=== PATIENT | male | born 1945 | race Caucasian/White ===

== ENCOUNTER 2016-06-13 13:41 | Outpatient (CLI) | payer OTHER ==
[~2016-06-13] VITALS: Ht 177.8 cm; Wt 105.9 kg
[2016-06-13 14:02] VITALS: BP 139/75; PULSE 72; RESP 16; Ht 177.8 cm; Wt 105.9 kg
--- NOTE | 2016-06-13 17:10 | CONS ---
Date/Time of Note Date/Time of Note DATE: 06/13/16 TIME: 16:31 Assessment/Plan Assessment/Plan Additional Assessment/Plan [facility] Subsequent Consultation Note Date of Service: 06/13/2016 Place of Service: [facility] Today's Assessment & Plan: Overall stable, but with likely suture granuloma. Can benefit from operative exploration and debridement with likely packing afterwards with dressing changes. Explained to patient and his and answered all questions. They are in agreement. With above assessment, I've recommended the following for today: 1. Pre-op H&P 2. Local exploration of left abdominal previous site of ostomy with possible drainage and excision of suture granuloma Thank you again for your great care of this very pleasant gentleman and his wonderful family. If there are any questions, please feel free to call me at . TOTAL VISIT TIME: 30 minutes of which more than half was spent in [id number] discussion with the patient as well as coordination of care between multiple physicians and providers. Disclaimer: Inadvertent spelling and grammatical errors are likely due to EHR/ dictation software use and do not reflect on the quality of delivered patient care. Also, please note that the electronic time recorded on this node does not necessarily reflect the actual time of the visit. Updated Clinical Summary: The patient is a very pleasant 70-year-old gentleman, well known to me and my practice from his prior multiple encounters for his complex surgical history with perforated diverticulitis, requiring emergency colectomy, a Loan procedure with colostomy, and then later on, takedown of this colostomy, in addition to endovascular repair of an abdominal aneurysm, porcelain gallbladder , status post laparoscopic cholecystectomy and a left total knee replacement, who has has been followed by us for incisional ventral hernia. Repeat CT scan in 06/08/15 showed presence of multiple small abdominal wall hernias, largest of which is to the right of midline above the level of the umbilicus. Given the patient's symptoms, I recommended surgical repair. Status post laparoscopic exploration with lysis of adhesions and mesh hernia repair of abdominal wall incisional hernias 3, 6 x 4 cm (main one that was symptomatic to the right of midline right upper quadrant) 4 x 2 cm upper midline, and 6 x 4 cm under previous colostomy site on the left), using 25 x 20 cm mesh (Symbotex, Covidien ) 09/04/2015. Kept in-house an additional 2 days for postoperative paralytic ileus resolution and monitoring. D/c home 09/08/15. Issues with drainage from old ostomy site towards end of 2015 and into beginning of 2016. CT 01/14/16 angiogram for AAA repair showed thickened area of abdominal wall at the site of leakage, but no obvious hernia. Comorbidities: 1. History of above-mentioned diverticulitis, leading to emergency resection, followed by a primary anastomosis and diverting colostomy that then was taken down a few months later. 2. A history of abdominal aortic aneurysm repair through endovascular means. 3. Status post left knee surgery. 4. Status post colonoscopy approximately 4 years ago which was thought to be normal. 5. Status post lap scopic cholecystectomy 6. History of above-mentioned diverticulitis, leading to emergency resection, followed by a primary anastomosis and diverting colostomy that then was taken down a few months later. 7. A history of abdominal aortic aneurysm repair through endovascular means. 8. Status post left knee surgery. 9. Status post colonoscopy approximately 4 years ago which was thought to be normal. 10. Status post lap scopic cholecystectomy Disclaimer: Inadvertent spelling and grammatical errors are likely due to EHR/ dictation software use and do not reflect on the quality of delivered patient care. PLACE OF SERVICE: [facility] ([facility]) at [facility] DATE OF CONSULTATION: 06/13/16 REASON FOR CONSULTATION: Drainage from previous ostomy site REFERRING PHYSICIAN: Matt Duff MD Dear Dr. 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 Julio Cesar Benites. HISTORY OF PRESENT ILLNESS: The patient is a very pleasant, 70-year-old gentleman, with above mentioned comorbidities, presenting with drainage from pervious ostomy site. Intermittent pain with relief with drainage. No fevers or chills. No n/v/d. No other major symptoms. ALLERGIES: NO KNOWN DRUG ALLERGIES MEDICATIONS See EHR SOCIAL HISTORY: The patient is and lives with his . There is no history of tobacco, alcohol or intravenous drug use. FAMILY HISTORY: There are no significant medical, surgical or oncologic issues in the family as reported by the patient or reflected in the chart. Note, that the patient's son when he was young. REVIEW OF SYSTEMS: Other than above mentioned, there are no other major pertinent positives or negatives in a complete 14 point of systems. PHYSICAL EXAMINATION GENERAL: The patient appears to be a very-pleasant, gentleman of [place] descent, appearing stated age, BMI 33.5 (previously 38.2 2016) sitting in a chair comfortably. VITAL SIGNS: AVSS (please also see EHR) HEENT: Head is normocephalic and atraumatic. His extraocular muscles and hearing are grossly intact bilaterally and symmetrically. His sclerae are nonicteric. Oral cavity is clear, and his oral mucosa appears to be pink and moist. He has fair to poor dentition with missing teeth. NECK: Supple. There is no lymphadenopathy or JVD. There is no submental, submandibular or supraclavicular lymphadenopathy. CHEST: Rises symmetrically with each breath and he is breathing comfortably. There are no audible wheezes, rales or rhonchi. HEART: Pulse is regular and palpable on the right wrist. His carotid pulses are palpable in his neck bilaterally and symmetrically. His capillary refill is normal. ABDOMEN: Shows well-healed, midline scars, as well as the previous colostomy site take down. There is no evidence of peritoneal signs or guarding. No evidence of wound issues, including no discharge, edema, erythema, or evidence of hernia along the midline. Small skin defect at site of old ostomy with mild purulent staining. No expressible pus. No sig tenderness or erythema. SKIN: Otherwise, appears to be pink and feels warm to touch. EXTREMITIES: Lower extremities contain no pitting edema bilaterally and symmetrically. NEUROLOGIC: Awake, alert, and follows commands appropriately. LABORATORY DATA: See clinic chart. IMAGING: See electronic chart. Please note that I've personally reviewed all pertinent available images and I agree in general with their overall reported findings. Consultation Date/Type/Reason Admit Date/Time Initial Consult Date Exam/Review of Systems Vital Signs Vitals Vital Signs Date Time Temp Pulse Resp B/P Pulse Ox O2 Delivery O2 Flow Rate FiO2 06/13/16 14:02 97.8 72 16 139/75 95 Room Air BRIA WOLFE M.D. Jun 13, 2016 16:52
== END 2016-06-13 17:00 | disposition home or self-care (01) ==
LOC: HPC 13:41
PROVIDERS: ATTEND Transplant Surgery
DX: K57.80 Diverticulitis of intestine, part unspecified, with perforation and abscess without bleeding (principal)
CPT/HCPCS: G0463

== ENCOUNTER 2016-07-13 10:19 | Outpatient (CLI) | payer OTHER ==
[~2016-07-13] VITALS: Ht 167.6 cm; Wt 106.8 kg
[2016-07-13 10:35] VITALS: BP 137/78; PULSE 66; RESP 18; Ht 167.6 cm; Wt 106.8 kg
--- NOTE | 2016-07-13 12:03 | PN ---
Date/Time of Note Date/Time of Note DATE: 07/13/16 TIME: 11:52 Assessment/Plan Assessment/Plan Assessment/Plan [facility] Progress Note Date of Service: 07/13/16 Today's Impression & Plan: Overall doing well post op without major issues. No major wound problems. No indication for surgical intervention. Wound essentially completely healed post removal of the suture material from old colostomy site. With above assessment, I've recommended the following for today: 1. F/u with PCP 2. F/u with us prn Thank you again for your great care of this very pleasant patient and wonderful family. If there are any questions, please feel free to call me at [phone]. TOTAL VISIT TIME: 20 minutes of which more than half was spent in [id number] discussion with the patient, possibly including family, as well as coordination of care between multiple physicians and providers. Disclaimer: Inadvertent spelling or grammatical errors are likely due to EHR/ dictation software use and do not reflect on the overall quality of patient care. Updated Clinical Summary: The patient is a very pleasant 70-year-old gentleman, well known to me and my practice from his prior multiple encounters for his complex surgical history with perforated diverticulitis, requiring emergency colectomy, a Loan procedure with colostomy, and then later on, takedown of this colostomy, in addition to endovascular repair of an abdominal aneurysm, porcelain gallbladder , status post laparoscopic cholecystectomy and a left total knee replacement, who has has been followed by us for incisional ventral hernia. Repeat CT scan in 06/08/15 showed presence of multiple small abdominal wall hernias, largest of which is to the right of midline above the level of the umbilicus. Given the patient's symptoms, I recommended surgical repair. Status post laparoscopic exploration with lysis of adhesions and mesh hernia repair of abdominal wall incisional hernias 3, 6 x 4 cm (main one that was symptomatic to the right of midline right upper quadrant) 4 x 2 cm upper midline, and 6 x 4 cm under previous colostomy site on the left), using 25 x 20 cm mesh (Symbotex, Covidien ) 09/04/2015. Kept in-house an additional 2 days for postoperative paralytic ileus resolution and monitoring. D/c home 09/08/15. Issues with drainage from old ostomy site towards end of 2015 and into beginning of 2016. CT 01/14/16 angiogram for AAA repair showed thickened area of abdominal wall at the site of leakage, but no obvious hernia. Comorbidities: 1. History of above-mentioned diverticulitis, leading to emergency resection, followed by a primary anastomosis and diverting colostomy that then was taken down a few months later. 2. A history of abdominal aortic aneurysm repair through endovascular means. 3. Status post left knee surgery. 4. Status post colonoscopy approximately 4 years ago which was thought to be normal. 5. Status post lap scopic cholecystectomy 6. History of above-mentioned diverticulitis, leading to emergency resection, followed by a primary anastomosis and diverting colostomy that then was taken down a few months later. 7. A history of abdominal aortic aneurysm repair through endovascular means. 8. Status post left knee surgery. 9. Status post colonoscopy approximately 4 years ago which was thought to be normal. 10. Status post lap scopic cholecystectomy 11. S/p wound exploration and removal of suture material from old colostomy take -down site at [facility] on 06/23/16 Subjective: No major events or complaints; no abd pain and under control with medications; no n/v/d; no sob or cp; + flatus; + BM and normal; + activity Objective: Vitals: See below Exam: GENERAL: On exam, the patient was sitting in a chair and appeared to be comfortable and in no acute distress. ABDOMEN: Soft, nontender and nondistended. Incisions are clean, dry and intact without any evidence of erythema, edema, discharge, or hernia. There are no peritoneal signs or guarding. SKIN: Skin appears to be pink and feels warm to touch. NEUROLOGIC: Patient is awake, alert, and follows commands appropriately. Exam/Review of Systems Vital Signs Vitals Vital Signs Date Time Temp Pulse Resp B/P Pulse Ox O2 Delivery O2 Flow Rate FiO2 07/13/16 10:35 97.6 66 18 137/78 96 Room Air BRIA WOLFE M.D. July 13, 2016 12:03
== END 2016-07-13 16:44 | disposition home or self-care (01) ==
LOC: HPC 10:19
PROVIDERS: ATTEND Transplant Surgery
DX: K57.30 Diverticulosis of large intestine without perforation or abscess without bleeding (principal); I71.4 Abdominal aortic aneurysm, without rupture
CPT/HCPCS: G0463

== ENCOUNTER 2017-03-02 17:42 | Inpatient (IN) | payer OTHER ==
[~2017-03-02] VITALS: Ht 177.8 cm; Wt 106.1 kg
[2017-03-02] MEDS ORDERED: ACETAMINOPHEN 325 MG TAB PO STA (18:22)
[2017-03-02] MEDS ORDERED: SODIUM CHLORIDE 0.9% 1L BAG IV* STA (18:22)
[2017-03-02] MEDS ORDERED: CEFTRIAXONE 1 GM/50 ML (PMX) 50 ML IVPB STA (18:22)
[2017-03-02 18:30] VITALS: TEMP 99.9
--- NOTE | 2017-03-02 19:07 | RADRPT ---
PROCEDURE: XR Chest 1 View. CLINICAL INDICATION: Shortness of breath. Possible sepsis. TECHNIQUE: Single view of the chest was obtained. COMPARISON: CR CHEST 06/08/2013 FINDINGS: The heart size is within normal limits. Calcified atherosclerosis is noted in the aorta. Mild centr al pulmonary vascular congestion and interstitial prominence is seen in both lungs. Scattered atelec tasis is noted in the bilateral lower lobes. No consolidations are identified. No pneumothorax is s een. Osseous structures are intact. IMPRESSION: Calcified atherosclerosis in the aorta. Mild central pulmonary vascular congestion and interstitial prominence in both lungs. Scattered atelectasis in the bilateral lower lungs. RPTAT: AA .Montana Henning MD, Date Time Electronically viewed and signed by .Montana Henning MD, on 03/02/2017 19:07 .P/
[2017-03-02] MEDS ORDERED: CLOT15CR6 TOP (19:15)
[2017-03-02 19:43] LABS: ADD UMIC YES; UR ASCORBIC ACID NEGATIVE (NEGATIVE); UR BACTERIA MODERATE /HPF (NONE SEEN); UR BILIRUBIN (Dip) NEGATIVE (NEGATIVE); UR BLOOD (Dip) 3+ mg/dL (NEGATIVE); UR CLARITY SLIGHTLY CLOUDY (CLEAR); UR COLOR AMBER (YELLOW); UR GLUCOSE (Dip) NEGATIVE (NEGATIVE); UR KETONES (Dip) TRACE mg/dL (NEGATIVE); UR LEUKOCYTE ESTERASE (Dip) 1+ Leu/ul (NEGATIVE); UR MUCUS MANY /HPF (NONE SEEN); UR NITRITE (Dip) NEGATIVE (NEGATIVE); UR NONSQUAMOUS EPITHELIAL CELL 1 /HPF (NONE SEEN); UR RBC 35 /HPF (0-5); UR SPECIFIC GRAVITY (Dip) 1.021 (1.003-1.030); UR TOTAL PROTEIN (Dip) 2+ mg/dl (NEGATIVE); UR UROBILINOGEN (Dip) 2+ mg/dL (NEGATIVE)
[2017-03-02 20:08] LABS: ABNORMAL IP MESSAGE 1; BASOPHILS % 0.2 % (0.0-2.0); HEMATOCRIT 45.6 % (42.0-52.0); HEMOGLOBIN 15.6 g/dl (14.0-18.0); LYMPHOCYTES # 0.6 10^3/ul (0.8-2.9); LYMPHOCYTES % 4.2 % (15.0-51.0); MEAN CORPUSCULAR HEMOGLOBIN 29.5 pg (29.0-33.0); MEAN CORPUSCULAR HGB CONC 34.2 g/dl (32.0-37.0); MEAN CORPUSCULAR VOLUME 86.2 fl (82.0-101.0); MEAN PLATELET VOLUME 10.4 fl (7.4-10.4); MONOCYTE # 0.8 10^3/ul (0.3-0.9); MONOCYTES % 5.6 % (0.0-11.0); NEUTROPHIL # 12.1 10^3/ul (1.6-7.5); NEUTROPHILS % 89.3 % (39.0-77.0); PLATELET COUNT 132 10^3/UL (140-415); POSITIVE DIFF @See below; RED BLOOD COUNT 5.29 10^6/ul (4.70-6.10); RED CELL DISTRIBUTION WIDTH 13.6 % (11.5-14.5); WHITE BLOOD COUNT 13.5 10^3/ul (4.8-10.8)
--- NOTE | 2017-03-02 20:20 | ERD ---
ER Documentation Chief Complaint Chief Complaint URINARY RETENTION/CONSTIPATION X3DAYS HPI This is a 71-year-old male that presents to the emergency department complaining of tactile fever with shaking and chills increased frequency urgency and dysuria for the past 3 days. Indicates he has been able to produce a small amount of urine due to the severity of pain with urination. He also indicates he had decreased bowel movements over the past 3 days with intermittent abdominal cramping. He has had significant past surgical history of his abdomen over the past several years. She returned from [facility] roughly 2 weeks ago but denies any shortness of breath at rest or exertion. He has had a nonproductive cough with generalized myalgias. He did not take any antipyretics prior to arrival. He denies any hemoptysis hematemesis or melanotic stools and denies any gross hematuria. Denies a headache or neck pain ROS All systems reviewed and are negative except as per history of present illness. Medications Home Meds Reported Medications Clotrimazole-Betamethasone Diprop (Clotrimazole-Betamethasone Diprop) 15 Gm Cream.gm., 1 APPLIC TOP BID, TUB 03/02/17 Allergies Allergies: Coded Allergies: No Known Allergy (Unverified , 03/02/17) PMhx/Soc Medical and Surgical Hx: pt denies Medical Hx History of Surgery: Yes (colon resection, hernia, colostomy, aortic stents, cholecystectomy) Anesthesia Reaction: No Hx Neurological Disorder: No Hx Respiratory Disorders: No Hx Cardiac Disorders: Yes (aortic sents) Hx Psychiatric Problems: No Hx Miscellaneous Medical Probl: No Hx Alcohol Use: No Hx Substance Use: No Hx Tobacco Use: No Smoking Status: Former smoker Physical Exam Vitals Vital Signs Date Time Temp Pulse Resp B/P Pulse Ox O2 Delivery O2 Flow Rate FiO2 03/02/17 18:30 99.9 79 18 136/74 93 Room Air 03/02/17 17:45 101.9 100 20 148/71 97 Physical Exam Constitutional:Well-developed. Well-nourished. HEENT:Normocephalic. Atraumatic.Pupils were equal round reactive to light. Very dry mucous membranes.No tonsillar exudates. Neck: No nuchal rigidity. No lymphadenopathy. No posterior cervical spine tenderness or step-offs. Respiratory: Not using accessory muscles of respiration.Lungs were clear to auscultation bilaterally. No rhonchi. No rales. No wheezing. Cardiovascular: Regular rate regular rhythm.No murmurs. No rubs were appreciated.S1, S2 normal. Distal pulses are palpable 2+ bilaterally. GI: Abdomen was soft. Tenderness in the left lower quadrant.. Non Distended. No pulsatile abdominal masses or bruits. No rebound. No guarding. Bowel sounds were present and normal. Previous surgical scars below the umbilicus midline vertical with no palpable hernias or masses. Muscle skeletal: Full range of motion of both the upper and lower extremities bilaterally.Normal muscle tone.No assymetrical calf tenderness or swelling. Skin: Warm to the touch with no petechia, no purpura. No lesions on the palms or the soles of the feet. No maculopapular rash. NEURO: Patient was alert, awake, orientated x3.No facial droop. Gait observed and normal with no ataxia.Speech had regular rate and rhythm. No focal neurological deficits. Result Diagram: 03/02/17189903/02/171899 Results 24 hrs Laboratory Tests Test 03/02/17 19:00 White Blood Count 13.510^3/ul Red Blood Count 5.2910^6/ul Hemoglobin 15.6g/dl Hematocrit 45.6% Mean Corpuscular Volume 86.2fl Mean Corpuscular Hemoglobin 29.5pg Mean Corpuscular Hemoglobin Concent 34.2g/dl Red Cell Distribution Width 13.6% Platelet Count 87025^3/UL Mean Platelet Volume 10.4fl Neutrophils % 89.3% Lymphocytes % 4.2% Monocytes % 5.6% Eosinophils % 0.0% Basophils % 0.2% Nucleated Red Blood Cells % 0.0/100WBC Neutrophils # 12.110^3/ul Lymphocytes # 0.610^3/ul Monocytes # 0.810^3/ul Eosinophils # 0.010^3/ul Basophils # 0.010^3/ul Nucleated Red Blood Cells # 0.010^3/ul Prothrombin Time 14.1Sec Prothrombin Time Ratio 1.1 INR International Normalized Ratio 1.08 Activated Partial Thromboplast Time 40.2Sec Urine Color ELBA Urine Clarity SLIGHTLY CLOUDY Urine pH 6.0 Urine Specific Trent 1.021 Urine Ketones TRACEmg/dL Urine Nitrite NEGATIVEmg/dL Urine Bilirubin NEGATIVEmg/dL Urine Urobilinogen 2+mg/dL Urine Leukocyte Esterase 1+Dylan/ul Urine Microscopic RBC 35/HPF Urine Microscopic WBC 68/HPF Urine Bacteria MODERATE/HPF Urine Mucus MANY/HPF Urine Hemoglobin 3+mg/dL Urine Glucose NEGATIVEmg/dL Urine Total Protein 2+mg/dl Sodium Level 136mmol/L Potassium Level 4.2mmol/L Chloride Level 98mmol/L Carbon Dioxide Level 24mmol/L Anion Gap 18 Blood Urea Nitrogen 13mg/dl Creatinine 1.08mg/dl Glucose Level 155mg/dl Lactic Acid Level 2.3mmol/L Calcium Level 9.3mg/dl Total Bilirubin 0.8mg/dl Direct Bilirubin 0.00mg/dl Indirect Bilirubin 0.8mg/dl Aspartate Amino Transf (AST/SGOT) 27IU/L Alanine Aminotransferase (ALT/SGPT) 48IU/L Alkaline Phosphatase 81IU/L Troponin I < 0.012ng/ml Total Protein 7.4g/dl Albumin 3.7g/dl Globulin 3.70g/dl Albumin/Globulin Ratio 1.00 Amylase Level < 30U/L Lipase 41U/L Current Medications Medications (Trade) Dose Ordered Sig/Mercedes Route PRN Reason Start Time Stop Time Status Last Admin Dose Admin Sodium Chloride (NS) 3,260 ml BOLUS OVER 2 HOURS STAT IV* 03/02/17 18:22 03/02/17 18:24 DC 03/02/17 20:50 Acetaminophen 650 mg 650 mg ONCE STAT PO 03/02/17 18:22 03/02/17 18:24 DC 03/02/17 20:49 Ceftriaxone Sodium (Rocephin) 50 ml @ 100 mls/hr ONCE STAT IVPB 03/02/17 18:22 03/02/17 18:57 DC 03/02/17 20:50 IV Flush 10 ml 10 ml STK-MED ONCE .ROUTE 03/02/17 20:51 03/02/17 20:52 DC Sodium Chloride (NS) 100 ml @ ud STK-MED ONCE .ROUTE 03/02/17 20:51 03/02/17 20:52 DC Iohexol (Omnipaque 300mg/ ml) 150 ml STK-MED ONCE .ROUTE 03/02/17 20:51 03/02/17 20:52 DC IV Flush 10 ml 10 ml STK-MED ONCE .ROUTE 03/02/17 22:11 03/02/17 22:12 DC Sodium Chloride (NS) 100 ml @ ud STK-MED ONCE .ROUTE 03/02/17 22:11 03/02/17 22:12 DC Iohexol (Omnipaque 300mg/ ml) 150 ml STK-MED ONCE .ROUTE 03/02/17 22:11 03/02/17 22:12 DC Procedures/MDM Presented to the emergency department febrile with sirs criteria and concerns for sepsis. Patient had a significant urinary tract infection with pyuria positive leukocytes and nitrates. Patient's infectious symptoms have not stabilized and the patient is at risk of rapid decompensation. The patient will be admitted for careful hydration, antibiotic therapy, and infectious source control. Severe Sepsis Assessment: Infectious Source: pyleonephritis End organ damage indicated by: Lactate > 2.0 mmol/L Severe Sepsis Managment: Blood Cultures X 2 before broad spectrum antibiotics initiated within 3 hours of recognition. 30 ml/kg NS bolus Completed Initial Lactate: 2.3 Repeat Lactate pending I considered further perfusion assessment with CVP measurement, SCVO2, bedside ultrasound volume assessment, passive leg raise, trial of further fluid bolus. And preceded with IV fluid hydration as the patient did have mild pulmonary vascular congestion on the chest radiograph but also had signs of clinical dehydration. 12 Lead EKG tracing ordered and reviewed by myself showed: Normal sinus rhythm of 78 bpm and no arrhythmia. GA interval normal. QRS duration normal. No ST segment elevation. Q waves present in the inferior leads III and aVF No ST segment depression. No changes consistent with acute ischemia. I obtained a CT scan of the abdomen due to the patient's mild femoral pain and this was reviewed by the radiologist myself and indicated the following: Abdominal aortic aneurysm measuring up to 4.4 cm with endovascular and aortobi- iliac stents, unchanged compared with 01/14/2016. Fatty infiltration of the liver. Status post cholecystectomy. Bilateral small renal cysts. Scattered sigmoid diverticuli without evidence of diverticulitis. Vascular calcifications reflective of atherosclerosis. Mild bibasilar atelectasis. Mild bladder wall thickening could suggest cystitis. Clinical correlation is needed. Mildly enlarged prostate. Patient will be admitted in serious condition to the telemetry service. Critical Care: Time: 55 minutes Treatments/Evaluations: Close monitoring and treatment of unstable vital signs, cardiorespiratory, and neurologic status, while maintaining tight balance of fluid, respiratory, and cardiac interventions. Time does not include performing any of the above billable procedures. Departure Diagnosis: Primary Impression: Pyelonephritis Additional Impression: Sepsis Sepsis type: sepsis due to unspecified organism Qualified Code: A41.9 - Sepsis, due to unspecified organism Condition: Serious KAREN MULLER Mar 02, 2017 20:20
[2017-03-02 20:22] LABS: INR 1.08; PROTIME 14.1 Sec (11.9-14.9); PT RATIO 1.1
[2017-03-02 20:23] LABS: PARTIAL THROMBOPLASTIN TIME 40.2 Sec (25.0-35.0)
[2017-03-02 20:27] LABS: ALANINE AMINOTRANSFERASE 48 IU/L (13-69); ALBUMIN 3.7 g/dl (3.3-4.9); ALKALINE PHOSPHATASE 81 IU/L (42-121); ANION GAP 18 (8-16); ASPARTATE AMINO TRANSFERASE 27 IU/L (15-46); BILIRUBIN,INDIRECT 0.8 mg/dl (0-1.1); BILIRUBIN,TOTAL 0.8 mg/dl (0.2-1.3); BLOOD UREA NITROGEN 13 mg/dl (7-20); CALCIUM 9.3 mg/dl (8.4-10.2); CARBON DIOXIDE 24 mmol/L (21-31); CHLORIDE 98 mmol/L (97-110); CREATININE 1.08 mg/dl (0.61-1.24); GLUCOSE 155 mg/dl (70-220); POTASSIUM 4.2 mmol/L (3.5-5.1); SODIUM 136 mmol/L (135-144); TOTAL PROTEIN 7.4 g/dl (6.1-8.1)
[2017-03-02 20:29] LABS: AMYLASE < 30 U/L (11-123)
[2017-03-02 20:37] LABS: TROPONIN-I < 0.012 ng/ml (0.00-0.12)
[2017-03-02] MEDS ORDERED: IOHEXOL 300MG/ML 150 ML BTL ONE ×2 (20:51→22:11)
[2017-03-02] MEDS ORDERED: SOD CHLORIDE 0.9% 100 ML ONE ×2 (20:51→22:11)
--- NOTE | 2017-03-02 23:09 | RADRPT ---
PROCEDURE: CT Abdomen and pelvis with contrast. CLINICAL INDICATION: Abdominal pain. TECHNIQUE: CT scan of the abdomen and pelvis with contrast was performed on a multi-detector high -resolution CT scanner. The patient was scanned following the uncomplicated administration of 90 cc of Omnipaque 300 intravenous contrast. Coronal and sagittal reformatted images were obtained from the axial source images. Images were reviewed on a high-resolution PACS workstation. DICOM images ar e available. One or more of the following dose reduction techniques were used: - Automated exposure control. - Adjustment of the mA and/or kV according to patient size. - Use of iterative reconstruction technique. Exam CTD/vol = 19.80 mGy. Total exam DLP = 1393.39 mGy-cm. COMPARISON: 01/14/2016. FINDINGS: Evaluation of the lung bases demonstrates mild bibasilar atelectasis. Abdomen: The liver is normal in size diffusely low in attenuation consistent with fatty infiltratio n. There is no focal mass or dilatation of the biliary tree. The patient is status post cholecyste ctomy. The spleen, pancreas and bilateral adrenal glands are within normal limits. Bilateral kidne ys are normal in size with symmetric enhancement. There are small renal cysts bilaterally. There is no hydronephrosis or hydroureter. There is no retroperitoneal adenopathy. The abdominal aorta mil dly aneurysmal measuring 4.4 x 4.1 cm in maximal axial dimensions. There are endovascular and aortob i-iliac stents present. There are scattered atherosclerotic calcifications. There is no bowel obstruction or free air. The appendix is not visualized. There are scattered sigm oid diverticuli without evidence of diverticulitis. There is no ascites. Pelvis: The bladder demonstrates mild wall thickening. The prostate is mildly enlarged. There is no significant pelvic adenopathy or free fluid. Evaluation of the osseous structures demonstrates no suspicious lytic or blastic lesion. IMPRESSION: Abdominal aortic aneurysm measuring up to 4.4 cm with endovascular and aortobi-iliac stents, unchang ed compared with 01/14/2016. Fatty infiltration of the liver. Status post cholecystectomy. Bilateral small renal cysts. Scattered sigmoid diverticuli without evidence of diverticulitis. Vascular calcifications reflective of atherosclerosis. Mild bibasilar atelectasis. Mild bladder wall thickening could suggest cystitis. Clinical correlation is needed. Mildly enlarged prostate.. .Dominic Lao MD, MD Date Time Electronically viewed and signed by .Dominic Lao MD, MD on 03/02/2017 23:09 .T/
[2017-03-03] VITALS (9 sets, daily range): BP systolic 123–144; BP diastolic 69–78; PULSE 62–72; RESP 18–20; Ht 177.8 cm; Wt 106.1 kg
[2017-03-03] MEDS ORDERED: ONDANSETRON 4 MG INJ IV PRN
[2017-03-03] MEDS ORDERED: NA PHOSPHATE/BIPHOS 133 ML ENEMA PR PRN
[2017-03-03] MEDS ORDERED: BISACODYL (EC) 5 MG TAB PO PRN
[2017-03-03] MEDS ORDERED: SOD CHLORIDE 0.9% IV ONE
[2017-03-03] MEDS ORDERED: ZOLPIDEM 5 MG TAB PO PRN
[2017-03-03] MEDS ORDERED: MAGNESIUM HYDROXIDE 30ML CUP PO PRN
[2017-03-03] MEDS ORDERED: NACL 0.9% 3 ML SYG IV SCH
[2017-03-03] MEDS ORDERED: HYDROCODONE/APAP (5/325) TAB PO PRN
[2017-03-03] MEDS ORDERED: DOCUSATE SODIUM 100 MG CAP PO PRN
[2017-03-03] MEDS ORDERED: ACETAMINOPHEN 325 MG TAB PO PRN
[2017-03-03] MEDS ORDERED: morphine 2 MG INJ IV PRN
[2017-03-03] MEDS ORDERED: LORAZEPAM 2 MG INJ IV PRN
[2017-03-03] MEDS ORDERED: BISACODYL 10 MG SUPP PR PRN
--- NOTE | 2017-03-03 00:01 | HP ---
Date/Time of Note Date/Time of Note DATE: 03/02/17 TIME: 23:49 Assessment/Plan VTE Prophylaxis VTE Prophylaxis Intervention: ambulation, anti-embolic stocking Lines/Catheters IV Catheter Type (from Nrs): Peripheral IV Central line still needed: No Urinary Cath still in place: No Reason Cath still needed: urinary retention Assessment/Plan Problems: (1) Sepsis Status: Acute Comment: Sepsis work up per protocol Fluid bolus 31cc/kg IV now and then IV fluid maintained to hydrate the patient Meropenem given after blood culture /urine culture done Qualifiers: Sepsis type: Escherichia coli Qualified Code: A41.51 - Sepsis due to Escherichia coli (2) Sepsis due to urinary tract infection Status: Acute Comment: see management as mentioned as above. Urine culture result pending ;we will narrow antibiotics spectrum based on urine culture and sensitivity (3) Pyelonephritis Status: Acute Comment: It is related to acute urinary retention and acute bladder outlet obstruction see management as mentioned as above (4) Dehydration Status: Acute Comment: encourage oral fluid (5) BPH (benign prostatic hyperplasia) Status: Chronic Comment: Proscar and Flomax given Qualifiers: Lower urinary tract symptom presence: symptoms present Lower urinary tract symptom detail: urinary frequency Qualified Code: N40.1 - Benign prostatic hyperplasia with urinary frequency (6) Obesity (BMI 30.0-34.9) Status: Chronic Comment: ambulate as much as possible (7) Abdominal aortic aneurysm (AAA) Status: Chronic Comment: S/P stenting due to atherosclerosis aspirin and Lipitor given TSH and lipid panel checked Qualifiers: Presence of rupture: without rupture Qualified Code: I71.4 - Abdominal aortic aneurysm (AAA) without rupture HPI/ROS Admit Date/Time Admit Date/Time 03/02/2017 Hx of Present Illness This is a 71-year-old male with significant medical illness of BPH , stable AAA S/P stenting due to atherosclerosis ,morbid obesity who was admitted here due to sepsis with acute pyelonephritis that presents to the emergency department complaining of tactile fever with shaking and chills increased frequency urgency and dysuria for the past 3 days. Indicates he has been able to produce a small amount of urine due to the severity of pain with urination. He also indicates he had decreased bowel movements over the past 3 days with intermittent abdominal cramping. He has had significant past surgical history of his abdomen over the past several years. She returned from [facility] roughly 2 weeks ago but denies any shortness of breath at rest or exertion. He has had a nonproductive cough with generalized myalgias. He did not take any antipyretics prior to arrival. He denies any hemoptysis hematemesis or melanotic stools and denies any gross hematuria. Denies a headache or neck pain ROS Constitutional: chills, fatigue, febrile, nausea, poor po, No diaphoresis, No disoriented, No improved, No no complaints, No other, No weight change Eyes: No discharge, No no complaints, No other, No pain, No redness, No visual change ENT: No bleeding, No congestion, No discharge, No dysphagia, No no complaints, No other, No pain, No sore throat Respiratory: No cough, No no complaints, No other, No pain, No pleuritic pain, No shortness of breath, No sputum, No wheezing Cardiovascular: lightheadedness, No chest pain, No edema, No no complaints, No orthopenea, No other, No palpitations, No paroxysmal nocturnal dyspnea Gastrointestinal: constipation, decreased appetite, flatus, vomiting, No blood, No diarrhea, No nausea, No no complaints, No other, No pain, No passing stool Genitourinary: discharge, dysuria, hematuria, No bleeding, No flank pain, No no complaints, No other Musculoskeletal: No back pain, No bone/joint pain, No neck pain, No no complaints, No other, No restricted range of motion, No swelling Skin: No bruising, No erythema, No laceration, No no complaints, No other, No pruritis, No rash, No skin lesions Neurologic: No confusion, No dizziness, No focal-weakness, No headache, No no complaints, No other, No seizure, No syncope Endocrine: No dry skin, No no complaints, No other, No polydypsia, No polyuria , No temp intolerance, No weight change Lymphatic: No adenopathy, No lymphadema, No no complaints, No other, No tender nodes Psychological: anxiety, No confusion, No depression, No nl mood/affect, No no complaints, No other, No suicidal Immunologic: No immunodeficiency, No no complaints, No other, No pruritis, No rhinitis, No urticaria PMH/Family/Social Past Medical History Medical History: hypertension, urinary tract infection, other (fibromyalgia) Past Surgical History Past Surgical Hx: cholecystectomy Family History Significant Family History: no pertinent family hx Social History Alcohol Use: none Smoking Status: Former smoker Drug Use: none Exam/Review of Systems Vital Signs Vitals Vital Signs Date Time Temp Pulse Resp B/P Pulse Ox O2 Delivery O2 Flow Rate FiO2 03/02/17 18:30 99.9 79 18 136/74 93 Room Air Exam Constitutional: alert, oriented, well developed Psych: anxiety Head: atraumatic, normocephalic Eyes: EOMI, PERRL, nl conjunctiva, nl lids, nl sclera ENMT: nl external ears & nose, nl lips & teeth, nl nasal mucosa & septum, other (dry mouth and oral musoca) Neck: non-tender, supple Respiratory: clear to auscultation, normal air movement, No congested cough, No crackles/rales, No diminished breath sounds, No intercostal retraction, No labored breathing, No other, No respirations, No tactile fremitus, No wheezing Cardiovascular: nl pulses, regular rate and rhythm Gastrointestinal: nl liver, spleen, non-tender, soft, No ascites, No bowel sounds, No distended, No firm, No hepatomegaly, No mass , No other, No rebound or guarding, No splenomegaly, No surgical scars, No tender Genitourinary - Male: nl penis, nl scrotum, No CVA tenderness, No discharge, No other Genitourinary - Female: No CMT, No CVA tenderness, No nl adnexae, No nl external genitalia, No other, No uterus Musculoskeletal: nl extremities to inspection, nl gait and stance, No joint tenderness, No muscle tone, No muscle weakness, No other, No range of motion, No spine non-tender, No swelling Extremities: normal pulses, No calf tenderness, No clubbing, No cyanosis, No edema, No other, No palpable cord, No pitting pedal edema, No tenderness Neurological: CRYSTALLOGRAPHER II-XII intact, lethargic, nl mental status, nl speech, nl strength, No DTR's symmetric, No confused, No focal weakness, No numbness, No other, No reflexes, No unresponsive Skin: nl turgor Lymph: nl lymph nodes, No enlarged, No nontender, No other Labs Result Diagram: 03/02/17189903/02/171899 Medications Medications Current Medications Meropenem/Sodium Chloride (Merrem 1 Gm/50 ml (Pmx)) 50 ml @ 100 mls/hr Q8 IVPB ; Start 03/03/17 at 00:00 Famotidine 20 mg 20 mg Q12 PO ; Start 03/03/17 at 09:00; Status UNV Sodium Chloride (NS) 1,000 ml @ 100 mls/hr Q10H IV ; Start 03/03/17 at 02:00 Lorazepam (Ativan) 0.5 mg Q6H PRN IV ANXIETY; Start 03/03/17 at 00:00 Ondansetron HCl (Zofran Inj) 4 mg Q6H PRN IV NAUSEA AND/OR VOMITING; Start at 00:00 Acetaminophen (Tylenol Tab) 650 mg Q6H PRN PO PAIN LEVEL 1-3 OR FEVER; Start 03/03/17 at 00:00; Status UNV Acetaminophen/ Hydrocodone Bitart ([place] (5/325)) 1 tab Q6H PRN PO PAIN LEVEL 4 -6; Start 03/03/17 at 00:00 Morphine Sulfate (morphine) 1 mg Q4H PRN IV PAIN LEVEL 7-10; Start 03/03/17 at 00:00 Zolpidem Tartrate (Ambien) 5 mg QHS PRN PO INSOMNIA; Start 03/03/17 at 00:00; Status UNV Docusate Sodium (Colace) 100 mg Q12H PRN PO CONSTIPATION; Start 03/03/17 at 00 :00; Status UNV Magnesium Hydroxide (Milk Of Mag) 30 ml DAILY PRN PO CONSTIPATION; Start 03/03 at 00:00; Status UNV Bisacodyl (Dulcolax) 5 mg DAILY PRN PO CONSTIPATION; Start 03/03/17 at 00:00; Status UNV Bisacodyl (Dulcolax Supp) 10 mg DAILY PRN NM CONSTIPATION; Start 03/03/17 at 00:00; Status UNV Sodium Biphosphate/ Sodium Phosphate (Fleet Enema) 133 ml DAILY PRN NM CONSTIPATION; Start 03/03/17 at 00:00 Enoxaparin Sodium (Lovenox) 40 mg DAILY SC ; Start 03/03/17 at 09:00 Finasteride (Proscar) 5 mg DAILY NGT ; Start 03/03/17 at 09:00; Status UNV Tamsulosin HCl (Flomax) 0.4 mg HS PO ; Start 03/03/17 at 21:00; Status UNV Procedures Procedures CT abdomen showed Abdominal aortic aneurysm measuring up to 4.4 cm with endovascular and aortobi-iliac stents, unchanged compared with 01/14/2016. Fatty infiltration of the liver. Status post cholecystectomy. Bilateral small renal cysts. Scattered sigmoid diverticula without evidence of diverticulitis. Vascular calcifications reflective of atherosclerosis. Mild bibasilar atelectasis. Mild bladder wall thickening could suggest cystitis. Clinical correlation is needed. Mildly enlarged prostate.. CXR showed acute pulmonary infiltrate CRISTIAN AYALA MD Mar 03, 2017 00:01
[2017-03-03] MEDS: MEROPENEM 1 GM/50ML(PMX) 50 ML IVPB SCH ×4 (01:57→21:38)
[2017-03-03 02:06] LABS: CHOL/HDL RATIO 4.8 RATIO
[2017-03-03] MEDS: SOD CHLORIDE 0.9% 1,000 ML IV SCH ×3 (03:15→13:26)
[2017-03-03] MEDS ORDERED: ENOXAPARIN 40 MG/0.4 ML SYG SC SCH (09:00)
[2017-03-03] MEDS: FINASTERIDE 5 MG TAB PO SCH (09:07)
[2017-03-03] MEDS: FAMOTIDINE 20 MG TAB PO SCH ×2 (09:08→21:36)
[2017-03-03] MEDS: ASPIRIN (EC) 81 MG TAB PO SCH (09:08)
[2017-03-03] MEDS: BETAMETHASONE/CLOTRIMAZOLE 15 GM CR TOP SCH ×2 (09:10→21:36)
[2017-03-03 09:37] LABS: HEMATOCRIT 41.8 % (42.0-52.0); MEAN CORPUSCULAR HEMOGLOBIN 29.5 pg (29.0-33.0); MEAN CORPUSCULAR HGB CONC 33.5 g/dl (32.0-37.0); MEAN PLATELET VOLUME 10.7 fl (7.4-10.4); PLATELET COUNT 109 10^3/UL (140-415); POSITIVE DIFF @See below; RED BLOOD COUNT 4.75 10^6/ul (4.70-6.10); RED CELL DISTRIBUTION WIDTH 14.1 % (11.5-14.5); WHITE BLOOD COUNT 9.8 10^3/ul (4.8-10.8)
[2017-03-03 11:11] LABS: ALBUMIN 3.1 g/dl (3.3-4.9); ALBUMIN/GLOBULIN RATIO 0.91; BILIRUBIN,INDIRECT 0.4 mg/dl (0-1.1); BILIRUBIN,TOTAL 0.4 mg/dl (0.2-1.3); CALCIUM 8.3 mg/dl (8.4-10.2); CREATININE 0.9 mg/dl (0.61-1.24); POTASSIUM 3.8 mmol/L (3.5-5.1); TOTAL PROTEIN 6.5 g/dl (6.1-8.1)
--- NOTE | 2017-03-03 14:22 | PN ---
Date/Time of Note Date/Time of Note DATE: 03/03/17 TIME: 14:06 Assessment/Plan VTE Prophylaxis VTE Prophylaxis Intervention: SCD's Lines/Catheters IV [facility] Type ([facility] Peripheral IV Urinary Cath still in place: Yes Reason Cath still needed: urinary retention Assessment/Plan Assessment/Plan 71-year-old male with: 1. Cystitis, UTI status post sepsis, urine culture with gram-negative rods, afebrile this AM, WBC down to normal this morning. Agree with Meropenem while awaiting final urine culture results. Patient did have urinary retention overnight requiring Cornejo catheter placement. Patient currently on Proscar and Flomax, will DC Cornejo catheter early tomorrow morning to see if he is able to urinate on his own. 2. 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 It is unclear if he developed some scarring and Continue current antibiotics along with Flomax and Proscar. 3. Abdominal aortic aneurysm, stable, status post stenting. Continue current medical management and outpatient surveillance 4. Status post multiple colon surgeries and now with a mesh present. Stable so far, followed by Dr. Yoan Aguirre who has done all his previous surgical interventions. Prophylaxis: SCDs for DVT prophylaxis, Pepcid for GI prophylaxis Disposition: Monitor on telemetry for now, continue current antibiotics, follow up urine cultures, D/C Cornejo catheter in a.m. as trial. Subjective 24 Hr Interval Summary Free Text/Dictation Patient doing better today, he is afebrile. He denies any abdominal pain or suprapubic tenderness on palpation. Cornejo catheter had to be placed around 3 AM last night due to urinary retention. Urine culture pending. On appropriate antibiotics. Exam/Review of Systems Vital Signs Vitals Vital Signs Date Time Temp Pulse Resp B/P Pulse Ox O2 Delivery O2 Flow Rate FiO2 03/03/17 12:11 62 03/03/17 11:30 98.6 20 132/71 96 03/03/17 01:50 Room Air Intake and Output 03/02/17 03/02/17 03/03/17 14:59 22:59 06:59 Intake Total 3310 ml 300 ml Output Total 425 ml Balance 3310 ml -125 ml Exam Constitutional: alert, oriented, well developed Respiratory: clear to auscultation, normal air movement Cardiovascular: nl pulses, regular rate and rhythm Gastrointestinal: non-tender, soft Genitourinary - Male: other (Cornejo catheter in place) Musculoskeletal: nl extremities to inspection, nl gait and stance Extremities: normal pulses, other (No edema, clubbing or cyanosis) Neurological: EMBROIDERY SPECIALIST II-XII intact, nl mental status, nl speech, nl strength Results Result Diagram: 03/03/17 0757 03/03/17 0757 Results 24 hrs Laboratory Tests Test 03/02/17 19:00 03/03/17 00:20 03/03/17 07:57 White Blood Count 13.5 H 9.8 # Red Blood Count 5.29 4.75 Hemoglobin 15.6 14.0 Hematocrit 45.6 41.8 L Mean Corpuscular Volume 86.2 88.0 Mean Corpuscular Hemoglobin 29.5 29.5 Mean Corpuscular Hemoglobin Concent 34.2 33.5 Red Cell Distribution Width 13.6 14.1 Platelet Count 132 L 109 L Mean Platelet Volume 10.4 10.7 H Neutrophils % 89.3 H Lymphocytes % 4.2 L Monocytes % 5.6 Eosinophils % 0.0 Basophils % 0.2 Nucleated Red Blood Cells % 0.0 0.0 Neutrophils # 12.1 H Lymphocytes # 0.6 L Monocytes # 0.8 Eosinophils # 0.0 Basophils # 0.0 Nucleated Red Blood Cells # 0.0 Prothrombin Time 14.1 Prothrombin Time Ratio 1.1 INR International Normalized Ratio 1.08 Activated Partial Thromboplast Time 40.2 H Urine Color ELBA Urine Clarity SLIGHTLY CLOUDY A Urine pH 6.0 Urine Specific [place] 1.021 Urine Ketones TRACE A Urine Nitrite NEGATIVE Urine Bilirubin NEGATIVE Urine Urobilinogen 2+ H Urine Leukocyte Esterase 1+ H Urine Microscopic RBC 35 H Urine Microscopic WBC 68 H Urine Bacteria MODERATE Urine Mucus MANY A Urine Hemoglobin 3+ H Urine Glucose NEGATIVE Urine Total Protein 2+ H Sodium Level 136 137 Potassium Level 4.2 3.8 Chloride Level 98 104 Carbon Dioxide Level 24 22 Anion Gap 18 H 15 Blood Urea Nitrogen 13 11 Creatinine 1.08 0.90 Glucose Level 155 125 Lactic Acid Level 2.3 *H 1.4 Calcium Level 9.3 8.3 L Total Bilirubin 0.8 0.4 Direct Bilirubin 0.00 0.00 Indirect Bilirubin 0.8 0.4 Aspartate Amino Transf (AST/SGOT) 27 26 Alanine Aminotransferase (ALT/SGPT) 48 46 Alkaline Phosphatase 81 66 Troponin I < 0.012 Total Protein 7.4 6.5 Albumin 3.7 3.1 L Globulin 3.70 H 3.40 H Albumin/Globulin Ratio 1.00 0.91 Amylase Level < 30 Lipase 41 Thyroid Stimulating Hormone (TSH) 1.070 B-Type Natriuretic Peptide 239 H Magnesium Level 1.9 Imaging Free Text/Dictation PROCEDURE: CT Abdomen and pelvis with contrast. CLINICAL INDICATION: Abdominal pain. TECHNIQUE: CT scan of the abdomen and pelvis with contrast was performed on a multi-detector high-resolution CT scanner. The patient was scanned following the uncomplicated administration of 90 cc of Omnipaque 300 intravenous contrast. Coronal and sagittal reformatted images were obtained from the axial source images. Images were reviewed on a high-resolution PACS workstation. DICOM images are available. One or more of the following dose reduction techniques were used: - Automated exposure control. - Adjustment of the mA and/or kV according to patient size. - Use of iterative reconstruction technique. Exam CTD/vol = 19.80 mGy. Total exam DLP = 1393.39 mGy-cm. COMPARISON: 01/14/2016. FINDINGS: Evaluation of the lung bases demonstrates mild bibasilar atelectasis. Abdomen: The liver is normal in size diffusely low in attenuation consistent with fatty infiltration. There is no focal mass or dilatation of the biliary tree. The patient is status post cholecystectomy. The spleen, pancreas and bilateral adrenal glands are within normal limits. Bilateral kidneys are normal in size with symmetric enhancement. There are small renal cysts bilaterally. There is no hydronephrosis or hydroureter. There is no retroperitoneal adenopathy. The abdominal aorta mildly aneurysmal measuring 4.4 x 4.1 cm in maximal axial dimensions. There are endovascular and aortobi- iliac stents present. There are scattered atherosclerotic calcifications. There is no bowel obstruction or free air. The appendix is not visualized. There are scattered sigmoid diverticuli without evidence of diverticulitis. There is no ascites. Pelvis: The bladder demonstrates mild wall thickening. The prostate is mildly enlarged. There is no significant pelvic adenopathy or free fluid. Evaluation of the osseous structures demonstrates no suspicious lytic or blastic lesion. IMPRESSION: Abdominal aortic aneurysm measuring up to 4.4 cm with endovascular and aortobi- iliac stents, unchanged compared with 01/14/2016. Fatty infiltration of the liver. Status post cholecystectomy. Bilateral small renal cysts. Scattered sigmoid diverticuli without evidence of diverticulitis. Vascular calcifications reflective of atherosclerosis. Mild bibasilar atelectasis. Mild bladder wall thickening could suggest cystitis. Clinical correlation is needed. Mildly enlarged prostate.. .Dominic Lao MD, MD Date Time Electronically viewed and signed by .Dominic Lao MD, MD on 03/02/2017 23:09 Medications Medications Current Medications Meropenem/Sodium Chloride (Merrem 1 Gm/50 ml (Pmx)) 50 ml @ 100 mls/hr Q8 IVPB Last administered on 03/03/17 13:24; Admin Dose 100 MLS/HR; Start 03/03/17 at 00:00 Famotidine 20 mg 20 mg Q12 PO Last administered on 03/03/17 09:08; Admin Dose 20 MG; Start 03/03/17 at 09:00 Sodium Chloride (NS) 1,000 ml @ 100 mls/hr Q10H IV Last administered on 13:26; Admin Dose 100 MLS/HR; Start 03/03/17 at 02:00 Lorazepam (Ativan) 0.5 mg Q6H PRN IV ANXIETY; Start 03/03/17 at 00:00 Ondansetron HCl (Zofran Inj) 4 mg Q6H PRN IV NAUSEA AND/OR VOMITING; Start at 00:00 Acetaminophen (Tylenol Tab) 650 mg Q6H PRN PO PAIN LEVEL 1-3 OR FEVER; Start 03/03/17 at 00:00 Acetaminophen/ Hydrocodone Bitart ([place] (5/325)) 1 tab Q6H PRN PO PAIN LEVEL 4 -6; Start 03/03/17 at 00:00 Morphine Sulfate (morphine) 1 mg Q4H PRN IV PAIN LEVEL 7-10; Start 03/03/17 at 00:00 Zolpidem Tartrate (Ambien) 5 mg QHS PRN PO INSOMNIA; Start 03/03/17 at 00:00 Docusate Sodium (Colace) 100 mg Q12H PRN PO CONSTIPATION; Start 03/03/17 at 00 :00 Magnesium Hydroxide (Milk Of Mag) 30 ml DAILY PRN PO CONSTIPATION; Start 03/03 at 00:00 Bisacodyl (Dulcolax) 5 mg DAILY PRN PO CONSTIPATION; Start 03/03/17 at 00:00 Bisacodyl (Dulcolax Supp) 10 mg DAILY PRN [place] CONSTIPATION; Start 03/03/17 at 00:00 Sodium Biphosphate/ Sodium Phosphate (Fleet Enema) 133 ml DAILY PRN [place] CONSTIPATION; Start 03/03/17 at 00:00 Finasteride (Proscar) 5 mg DAILY PO Last administered on 03/03/17 09:07; Admin Dose 5 MG; Start 03/03/17 at 09:00 Tamsulosin HCl (Flomax) 0.4 mg HS PO ; Start 03/03/17 at 21:00 Betamethasone/ Clotrimazole (Lotrisone Cr) 1 applic BID TOP Last administered on 03/03/17 09:10; Admin Dose 1 APPLIC; Start 03/03/17 at 09:00 Aspirin (Halfprin) 81 mg DAILY PO Last administered on 03/03/17 09:08; Admin Dose 81 MG; Start 03/03/17 at 09:00 Atorvastatin Calcium (Lipitor) 20 mg HS PO ; Start 03/03/17 at 21:00 LIBBY LE Mar 03, 2017 14:16
[2017-03-03] MEDS: TAMSULOSIN (SR) 0.4 MG CAP PO SCH (21:36)
[2017-03-03] MEDS: ATORVASTATIN 20 MG TAB PO SCH (21:36)
[2017-03-04] VITALS (11 sets, daily range): BP systolic 117–139; BP diastolic 62–72; PULSE 50–84; RESP 17–20
[2017-03-04] MEDS: MEROPENEM 1 GM/50ML(PMX) 50 ML IVPB SCH (06:22)
[2017-03-04] MEDS: SOD CHLORIDE 0.9% 1,000 ML IV SCH (08:00)
[2017-03-04 08:30] LABS: HEMATOCRIT 39.9 % (42.0-52.0); HEMOGLOBIN 13.4 g/dl (14.0-18.0); MEAN CORPUSCULAR HEMOGLOBIN 29.5 pg (29.0-33.0); MEAN CORPUSCULAR HGB CONC 33.6 g/dl (32.0-37.0); MEAN CORPUSCULAR VOLUME 87.7 fl (82.0-101.0); MEAN PLATELET VOLUME 10.5 fl (7.4-10.4); PLATELET COUNT 115 10^3/UL (140-415); POSITIVE DIFF @See below; RED BLOOD COUNT 4.55 10^6/ul (4.70-6.10); RED CELL DISTRIBUTION WIDTH 13.5 % (11.5-14.5); WHITE BLOOD COUNT 6.4 10^3/ul (4.8-10.8)
[2017-03-04 08:55] LABS: MAGNESIUM 1.9 mg/dl (1.7-2.5); PHOSPHORUS 2.4 mg/dl (2.5-4.9)
[2017-03-04] MEDS: BETAMETHASONE/CLOTRIMAZOLE 15 GM CR TOP SCH ×2 (09:04→21:00)
[2017-03-04] MEDS: FINASTERIDE 5 MG TAB PO SCH (09:04)
[2017-03-04] MEDS: FAMOTIDINE 20 MG TAB PO SCH ×2 (09:04→21:34)
[2017-03-04] MEDS: ASPIRIN (EC) 81 MG TAB PO SCH (09:04)
[2017-03-04 09:41] LABS: CALCIUM 8.1 mg/dl (8.4-10.2); CREATININE 0.85 mg/dl (0.61-1.24); POTASSIUM 3.7 mmol/L (3.5-5.1)
[2017-03-04 10:43] LABS: ANISOCYTOSIS 1+ (0-0); EOSINOPHILS % (M) 1 % (0-7); MICROCYTOSIS 1+ (0-0); MONOCYTES % (M) 10 % (0-11); PLATELET ESTIMATE DECREASED; POLYCHROMASIA 2+ (0-0); REACTIVE LYMPHOCYTES% (M) 5 % (0-0)
[2017-03-04] MEDS: LEVOFLOXACIN 750MG/D5W (PMX) 150 ML IVPB SCH (13:08)
[2017-03-04] MEDS: LACTOBACILLUS RHAMNOSUS CAP PO SCH ×2 (13:55→21:34)
--- NOTE | 2017-03-04 15:17 | PN ---
Date/Time of Note Date/Time of Note DATE: 03/04/17 TIME: 15:07 Assessment/Plan VTE Prophylaxis VTE Prophylaxis Intervention: SCD's Lines/Catheters IV Catheter Type (from [facility]): Peripheral IV Urinary Cath still in place: No Assessment/Plan Assessment/Plan 71-year-old male with: 1. Cystitis, UTI status post sepsis, urine culture with Escherichia coli, sensitive to fluoroquinolones. Patient remains afebrile, WBC normal 2 days. Antibiotics adjusted and changed to Levaquin, Cornejo catheter removed. Patient currently on Proscar and Flomax. 2. 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 Cornejo catheter removed, patient has been able to urinate on his own. At the time of discharge he will be maintained on Proscar and Flomax until he follows up with his outpatient urologist. 3. Abdominal aortic aneurysm, stable, status post stenting. Continue current medical management and outpatient surveillance 4. Status post multiple colon surgeries and now with a mesh present. Stable so far, followed by Dr. Yoan Aguirre who has done all his previous surgical interventions. Patient had bowel movements already this morning. Probiotics while on antibiotics. Prophylaxis: SCDs for DVT prophylaxis, Pepcid for GI prophylaxis Disposition: Discharge planning in the next 24 hours on oral antibiotics and outpatient urology follow-up, if stable in a.m. Subjective 24 Hr Interval Summary Free Text/Dictation Patient doing well today, Cornejo catheter was removed, he already has urinated. He also had a bowel movement. He is tolerating p.o., denying any suprapubic tenderness. He had some mild dysuria after removal of the catheter. He remains afebrile, WBCs within normal however it is noted to have 27% bandemia. His antibiotics have been adjusted to Levaquin to cover for the Escherichia coli growing from the urine. Repeat blood cultures have been drawn today. Blood cultures 1/3 positive for bacillus which is likely contaminant. Exam/Review of Systems Vital Signs Vitals Vital Signs Date Time Temp Pulse Resp B/P Pulse Ox O2 Delivery O2 Flow Rate FiO2 03/04/17 12:00 59 03/04/17 11:51 98.8 20 117/62 97 03/03/17 01:50 Room Air Intake and Output 03/03/17 03/03/17 03/04/17 15:00 23:00 07:00 Intake Total 950 ml 1200 ml 300 ml Output Total 700 ml 650 ml Balance 950 ml 500 ml -350 ml Exam Constitutional: alert, obese, oriented, well developed Respiratory: clear to auscultation, normal air movement Cardiovascular: nl pulses, regular rate and rhythm Gastrointestinal: non-tender, soft Genitourinary - Male: other (Cornejo catheter removed, patient urinating adequately so far.) Musculoskeletal: nl extremities to inspection, nl gait and stance Extremities: normal pulses Neurological: MULTIFOCAL LENS INSPECTOR II-XII intact, nl mental status, nl speech, nl strength Results Result Diagram: 03/04/1742 03/04/17 0742 Results 24 hrs Laboratory Tests Test 03/04/17 07:42 03/04/17 07:45 White Blood Count 6.4 # Red Blood Count 4.55 L Hemoglobin 13.4 L Hematocrit 39.9 L Mean Corpuscular Volume 87.7 Mean Corpuscular Hemoglobin 29.5 Mean Corpuscular Hemoglobin Concent 33.6 Red Cell Distribution Width 13.5 Platelet Count 115 L Mean Platelet Volume 10.5 H Neutrophils % Segmented Neutrophils % (Manual) 40 Band Neutrophils % (Manual) 27 H Lymphocytes % Lymphocytes % (Manual) 17 Reactive Lymphocytes % (Manual) 5 H Monocytes % Monocytes % (Manual) 10 Eosinophils % Eosinophils % (Manual) 1 Basophils % Nucleated Red Blood Cells % 0.0 Neutrophils # Neutrophils # (Manual) 2.7 Band Neutrophils # 1.7 H Absolute Lymphocytes (Manual) 1.0 Lymphocytes # Reactive Lymphocytes # 0.3 H Monocytes # Absolute Monocytes (Manual) 0.6 Eosinophils # Basophils # Nucleated Red Blood Cells # Platelet Estimate DECREASED Polychromasia 2+ Anisocytosis 1+ Microcytosis 1+ Sodium Level 134 L Potassium Level 3.7 Chloride Level 103 Carbon Dioxide Level 23 Anion Gap 12 Blood Urea Nitrogen 10 Creatinine 0.85 Glucose Level 107 Calcium Level 8.1 L Phosphorus Level 2.4 L Magnesium Level 1.9 Medications Medications Current Medications Famotidine (Pepcid) 20 mg Q12 PO Last administered on 03/04/17t 09:04; Admin Dose 20 MG; Start 03/03/17 at 09:00 Lorazepam (Ativan) 0.5 mg Q6H PRN IV ANXIETY; Start 03/03/17 at 00:00 Ondansetron HCl (Zofran Inj) 4 mg Q6H PRN IV NAUSEA AND/OR VOMITING; Start at 00:00 Acetaminophen (Tylenol Tab) 650 mg Q6H PRN PO PAIN LEVEL 1-3 OR FEVER; Start 03/03/17 at 00:00 Acetaminophen/ Hydrocodone Bitart ([place] (5/325)) 1 tab Q6H PRN PO PAIN LEVEL 4 -6; Start 03/03/17 at 00:00 Morphine Sulfate (morphine) 1 mg Q4H PRN IV PAIN LEVEL 7-10; Start 03/03/17 at 00:00 Zolpidem Tartrate (Ambien) 5 mg QHS PRN PO INSOMNIA; Start 03/03/17 at 00:00 Docusate Sodium (Colace) 100 mg Q12H PRN PO CONSTIPATION; Start 03/03/17 at 00 :00 Magnesium Hydroxide (Milk Of Mag) 30 ml DAILY PRN PO CONSTIPATION; Start 03/03 at 00:00 Bisacodyl (Dulcolax) 5 mg DAILY PRN PO CONSTIPATION; Start 03/03/17 at 00:00 Bisacodyl (Dulcolax Supp) 10 mg DAILY PRN [place] CONSTIPATION; Start 03/03/17 at 00:00 Sodium Biphosphate/ Sodium Phosphate (Fleet Enema) 133 ml DAILY PRN [place] CONSTIPATION; Start 03/03/17 at 00:00 Finasteride (Proscar) 5 mg DAILY PO Last administered on 03/04/17 09:04; Admin Dose 5 MG; Start 03/03/17 at 09:00 Tamsulosin HCl (Flomax) 0.4 mg HS PO Last administered on 03/03/17 21:36; Admin Dose 0.4 MG; Start 03/03/17 at 21:00 Betamethasone/ Clotrimazole (Lotrisone Cr) 1 applic BID TOP Last administered on 03/04/17 09:04; Admin Dose 1 APPLIC; Start 03/03/17 at 09:00 Aspirin (Halfprin) 81 mg DAILY PO Last administered on 03/04/17 09:04; Admin Dose 81 MG; Start 03/03/17 at 09:00 Atorvastatin Calcium 20 mg 20 mg HS PO Last administered on 03/03/17 21:36; Admin Dose 20 MG; Start 03/03/17 at 21:00 Levofloxacin/ Dextrose (Levaquin 750 Mg/ D5W 150 ml (Pmx)) 150 ml @ 100 mls/hr Q24H IVPB Last administered on 03/04/17 13:08; Admin Dose 100 MLS/HR; Start 03/04/17 at 13:00 Lactobacillus Acidophilus/ Rhamnosus (Culturelle) 1 cap BID PO Last administered on 03/04/17 13:55; Admin Dose 1 CAP; Start 03/04/17 at 13:00 LIBBY LE Mar 04, 2017 15:17
[2017-03-04] MEDS: ATORVASTATIN 20 MG TAB PO SCH (21:34)
[2017-03-04] MEDS: TAMSULOSIN (SR) 0.4 MG CAP PO SCH (21:34)
[2017-03-05] VITALS (9 sets, daily range): BP systolic 128–166; BP diastolic 65–88; PULSE 52–65; RESP 17–20
[2017-03-05 06:38] LABS: BASOPHILS % 0.6 % (0.0-2.0); EOSINOPHILS # 0.1 10^3/ul (0.0-0.5); EOSINOPHILS % 1.2 % (0.0-7.0); HEMATOCRIT 41.1 % (42.0-52.0); HEMOGLOBIN 14.3 g/dl (14.0-18.0); LYMPHOCYTES # 1.5 10^3/ul (0.8-2.9); LYMPHOCYTES % 30.3 % (15.0-51.0); MEAN CORPUSCULAR HEMOGLOBIN 29.5 pg (29.0-33.0); MEAN CORPUSCULAR HGB CONC 34.8 g/dl (32.0-37.0); MEAN CORPUSCULAR VOLUME 84.7 fl (82.0-101.0); MEAN PLATELET VOLUME 10.4 fl (7.4-10.4); MONOCYTE # 0.8 10^3/ul (0.3-0.9); MONOCYTES % 16.3 % (0.0-11.0); NEUTROPHIL # 2.5 10^3/ul (1.6-7.5); NEUTROPHILS % 51.2 % (39.0-77.0); PLATELET COUNT 136 10^3/UL (140-415); RED BLOOD COUNT 4.85 10^6/ul (4.70-6.10); RED CELL DISTRIBUTION WIDTH 13.3 % (11.5-14.5); WHITE BLOOD COUNT 4.9 10^3/ul (4.8-10.8)
[2017-03-05 07:10] LABS: CALCIUM 8.7 mg/dl (8.4-10.2); CREATININE 0.84 mg/dl (0.61-1.24); POTASSIUM 3.6 mmol/L (3.5-5.1)
[2017-03-05] MEDS: BETAMETHASONE/CLOTRIMAZOLE 15 GM CR TOP SCH (09:00)
[2017-03-05] MEDS: LACTOBACILLUS RHAMNOSUS CAP PO SCH (09:05)
[2017-03-05] MEDS: FAMOTIDINE 20 MG TAB PO SCH (09:05)
[2017-03-05] MEDS: FINASTERIDE 5 MG TAB PO SCH (09:05)
[2017-03-05] MEDS: ASPIRIN (EC) 81 MG TAB PO SCH (09:11)
[2017-03-05] MEDS: LEVOFLOXACIN 750MG/D5W (PMX) 150 ML IVPB SCH (13:33)
--- NOTE | 2017-03-05 15:12 | PN ---
Date/Time of Note Date/Time of Note DATE: 03/05/17 TIME: 15:11 Assessment/Plan VTE Prophylaxis VTE Prophylaxis Intervention: SCD's Lines/Catheters IV [facility] (from [facility] [place] Urinary Cath still in place: No Assessment/Plan Assessment/Plan 71-year-old male with: 1. Escherichia coli cystitis, UTI status post sepsis. Patient remains afebrile, WBC normal 3 days. Antibiotics adjusted and changed to Levaquin, patient to complete 4 more days of Levaquin. Also to be discharged on Proscar and Flomax. Discharge home and follow-up with primary care physician and urologist outpatient. 2. Urinary retention prostate mildly enlarged on CAT scan, resolved. 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 Patient to remain on Flomax and Proscar to follow-up with his urologist outpatient. 3. Abdominal aortic aneurysm, stable, status post stenting. Continue current medical management and outpatient surveillance 4. Status post multiple colon surgeries and now with a mesh present. Stable so far, followed by Dr. Yoan Aguirre who has done all his previous surgical interventions. Patient had bowel movements already this morning. Probiotics while on antibiotics. Prophylaxis: SCDs for DVT prophylaxis, Pepcid for GI prophylaxis Disposition: Discharge home today with oral Levaquin, PCP follow-up and outpatient urology. Subjective 24 Hr Interval Summary Free Text/Dictation Patient doing well today, afebrile, no nausea no vomiting. Tolerating p.o. well. WBC within normal with no bandemia. Continue Levaquin for 4 more days. Discharge home today. Follow-up with PCP and urologist. Exam/Review of Systems Vital Signs Vitals Vital Signs Date Time Temp Pulse Resp B/P Pulse Ox O2 Delivery O2 Flow Rate FiO2 03/05/17 12:10 64 03/05/17 11:19 98.2 20 166/88 94 Room Air Intake and Output 03/04/17 03/04/17 03/05/17 15:00 23:00 07:00 Intake Total 150 ml 1400 ml 500 ml Output Total 900 ml 1800 ml Balance 150 ml 500 ml -1300 ml Exam Constitutional: alert, obese, oriented, well developed Respiratory: clear to auscultation, normal air movement Cardiovascular: nl pulses, regular rate and rhythm Gastrointestinal: non-tender, soft Musculoskeletal: nl extremities to inspection, nl gait and stance Extremities: normal pulses Neurological: BILL POSTER INSTALLER II-XII intact, nl mental status, nl speech, nl strength Results Result Diagram: 03/05/1757 03/05/17 0557 Results 24 hrs Laboratory Tests Test 03/05/17 05:57 White Blood Count 4.9 # Red Blood Count 4.85 Hemoglobin 14.3 Hematocrit 41.1 L Mean Corpuscular Volume 84.7 Mean Corpuscular Hemoglobin 29.5 Mean Corpuscular Hemoglobin Concent 34.8 Red Cell Distribution Width 13.3 Platelet Count 136 L Mean Platelet Volume 10.4 Neutrophils % 51.2 Lymphocytes % 30.3 Monocytes % 16.3 H Eosinophils % 1.2 Basophils % 0.6 Nucleated Red Blood Cells % 0.0 Neutrophils # 2.5 Lymphocytes # 1.5 Monocytes # 0.8 Eosinophils # 0.1 Basophils # 0.0 Nucleated Red Blood Cells # 0.0 Sodium Level 139 Potassium Level 3.6 Chloride Level 104 Carbon Dioxide Level 27 Anion Gap 12 Blood Urea Nitrogen 10 Creatinine 0.84 Glucose Level 121 Calcium Level 8.7 Medications Medications Current Medications Famotidine (Pepcid) 20 mg Q12 PO Last administered on 03/05/17 09:05; Admin Dose 20 MG; Start 03/03/17 at 09:00 Lorazepam (Ativan) 0.5 mg Q6H PRN IV ANXIETY; Start 03/03/17 at 00:00 Ondansetron HCl (Zofran Inj) 4 mg Q6H PRN IV NAUSEA AND/OR VOMITING; Start at 00:00 Acetaminophen (Tylenol Tab) 650 mg Q6H PRN PO PAIN LEVEL 1-3 OR FEVER; Start 03/03/17 at 00:00 Acetaminophen/ Hydrocodone Bitart ([place] (5/325)) 1 tab Q6H PRN PO PAIN LEVEL 4 -6; Start 03/03/17 at 00:00 Morphine Sulfate (morphine) 1 mg Q4H PRN IV PAIN LEVEL 7-10; Start 03/03/17 at 00:00 Zolpidem Tartrate (Ambien) 5 mg QHS PRN PO INSOMNIA; Start 03/03/17 at 00:00 Docusate Sodium (Colace) 100 mg Q12H PRN PO CONSTIPATION Last administered on 03/05/17 09:05; Admin Dose 100 MG; Start 03/03/17 at 00:00 Magnesium Hydroxide (Milk Of Mag) 30 ml DAILY PRN PO CONSTIPATION; Start 03/03 at 00:00 Bisacodyl (Dulcolax) 5 mg DAILY PRN PO CONSTIPATION; Start 03/03/17 at 00:00 Bisacodyl (Dulcolax Supp) 10 mg DAILY PRN [place] CONSTIPATION; Start 03/03/17 at 00:00 Sodium Biphosphate/ Sodium Phosphate (Fleet Enema) 133 ml DAILY PRN [place] CONSTIPATION; Start 03/03/17 at 00:00 Finasteride (Proscar) 5 mg DAILY PO Last administered on 03/05/17 09:05; Admin Dose 5 MG; Start 03/03/17 at 09:00 Tamsulosin HCl (Flomax) 0.4 mg HS PO Last administered on 03/04/17 21:34; Admin Dose 0.4 MG; Start 03/03/17 at 21:00 Betamethasone/ Clotrimazole (Lotrisone Cr) 1 applic BID TOP Last administered on 03/04/17 09:04; Admin Dose 1 APPLIC; Start 03/03/17 at 09:00 Aspirin (Halfprin) 81 mg DAILY PO Last administered on 03/05/17 09:11; Admin Dose 81 MG; Start 03/03/17 at 09:00 Atorvastatin Calcium 20 mg 20 mg HS PO Last administered on 03/04/17 21:34; Admin Dose 20 MG; Start 03/03/17 at 21:00 Levofloxacin/ Dextrose (Levaquin 750 Mg/ D5W 150 ml (Pmx)) 150 ml @ 100 mls/hr Q24H IVPB Last administered on 03/05/17 13:33; Admin Dose 100 MLS/HR; Start 03/04/17 at 13:00 Lactobacillus Acidophilus/ Rhamnosus (Culturelle) 1 cap BID PO Last administered on 03/05/17 09:05; Admin Dose 1 CAP; Start 03/04/17 at 13:00 LIBBY LE Mar 05, 2017 15:12
--- NOTE | 2017-03-05 15:13 | PDOCDIS ---
Discharge Instructions CONDITION Patient Condition: Stable HOME CARE INSTRUCTIONS: Diet Instructions: Regular ACTIVITY: Activity Restrictions: Slowly Increase Activity FOLLOW UP/APPOINTMENTS Follow-up Plan Follow-up with primary care physician within 1 week Follow-up with outpatient urologist within 1-2 weeks LIBBY LE Mar 05, 2017 15:13
[2017-03-05] MEDS ORDERED: LACT1CAP28 PO (15:21)
[2017-03-05] MEDS ORDERED: LEVO750T25 PO (15:21)
[2017-03-05] MEDS ORDERED: FINA5TAB4 PO (15:21)
[2017-03-05] MEDS ORDERED: TAMS-14 PO (15:21)
== END 2017-03-05 16:46 | disposition home or self-care (01) | DRG 872 ==
LOC: E/R 17:42 → TEL 23:47
PROVIDERS: ADMIT Hospitalist; ATTEND Hospitalist
DX: A41.51 Sepsis due to Escherichia coli [E. coli] (principal); E86.0 Dehydration; N30.90 Cystitis, unspecified without hematuria; N40.1 Benign prostatic hyperplasia with lower urinary tract symptoms; R35.0 Frequency of micturition; E66.9 Obesity, unspecified; Z68.33 Body mass index [BMI] 33.0-33.9, adult; I71.4 Abdominal aortic aneurysm, without rupture; Z87.891 Personal history of nicotine dependence; R33.8 Other retention of urine
CPT/HCPCS: 36415; 71010; 74177; 80048; 80053; 80061; 81001; 82150; 83605; 83690; 83735; 83880; 84100; 84443; 84484; 85025; 85610; 85730; 86850; 86900; 86901; 87040; 87086; 87400; 93005; 96361; 96374; 96375; J0696; J1956; J2185; J7030; Q9967